=== PATIENT | female | born 1925 | race Caucasian/White ===

== ENCOUNTER → 2016-08-07 10:32 | Outpatient (CLI) | payer MEDICARE, BC ==
[2014-09-13 16:22] VITALS: BMI 28.4
[~2016-08-07 10:32] MED LIST: CALTRATE 600 M600 M1 PO; FERROUS SULFAT325 MG PO; ICAPS AREDS1 TAB.SA PO; MILK OF MAGNESI30 ML PO; NITROSTAT0.4 MG SL; PROTONIX40 MG PO; SYNTHROID75 MCG PO; VIBRAMYCIN 100100 MG PO; VITAMIN B-1000 MCG/M IM; VITAMIN D31000 UNIT PO
== END | disposition home or self-care (01) ==
LOC: D.CT 10:32
DX: G45.9 Transient cerebral ischemic attack, unspecified (principal); R20.9 Unspecified disturbances of skin sensation; H54.7 Unspecified visual loss